=== PATIENT | male | born 1940 | race Caucasian/White ===

== ENCOUNTER 2019-05-25 16:08 | Emergency (ER) | payer OTHER ==
[2019-05-25] MEDS ORDERED: Sodium Chloride 0.9% 10 ML Syringe FLUSH PRN (16:51)
--- NOTE | 2019-05-25 17:04 | EDM.PDOC ---
ED HPI GENERAL MEDICAL PROBLEM - General Source of Information: Reports: Patient, Family History Limitations: Reports: No Limitations <Jose Manuel Ny - Last Filed: 05/25/19 17:04> <Jose D Ponce - Last Filed: 05/26/19 10:29> - General Chief Complaint: Neurological Problem Stated Complaint: [facility] Time Seen by Provider: 05/25/19 16:13 - History of Present Illness INITIAL COMMENTS - FREE TEXT/NARRATIVE: 78 year old male presents to the ED by [facility] with complaints of seizure activity. The family reports that he was just getting home from a clinic visit at the [place] and his and daughter were helping him up the stairs and into his house when he went limp and to the ground and developed seizure like activity. The patient's and daughter reported that both of the patient's legs went stiff and started shaking and his left hand flexed inward and was shaking as well. Pt's eyes remained open, but the family states that he was not responsive to verbal cues. This lasted approximately 1 minute. The patient is now drowsy and post ictal but answers questions appropriately. 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 They report that the patient has frequent "twitching" of his upper and lower extremities since the tumor removal. He has not been taking his seizure medication, Keppra, due to the side effects of muscle weakness. Pt has also been grasping at the fingers of both of his hands as if an object is there. Has also been dropping things more frequently. (Jose Manuel Ny) - Related Data Allergies Allergy/AdvReac Type Severity Reaction Status Date / Time lisinopril Allergy Hallucinati Verified 05/25/19 16:15 ons Home Meds: Home Meds Apixaban [Eliquis] 5 mg PO BID 05/25/19 [History] DULoxetine [Cymbalta] 40 mg PO BID 05/25/19 [History] Omeprazole 20 mg PO DAILY 05/25/19 [History] Ondansetron [Zofran] 8 mg PO Q8H PRN 05/25/19 [History] Tamsulosin HCl 0.4 mg PO DAILY 05/25/19 [History] Temozolomide 420 mg PO DAILY 05/25/19 [History] Valsartan 320 mg PO DAILY 05/25/19 [History] amLODIPine Besylate [Amlodipine Besylate] 5 mg PO DAILY 05/25/19 [History] levETIRAcetam [Keppra] 500 mg PO BID 05/25/19 [History] Past Medical History 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 <Jose Manuel Ny - Last Filed: 05/25/19 17:04> Social & Family History - Tobacco Use Smoking Status *Q: Former Smoker Used Tobacco, but Quit: Yes Month/Year Tobacco Last Used: 1979 - Caffeine Use Caffeine Use: Reports: Coffee - Recreational Drug Use Recreational Drug Use: No <Jose Manuel Ny - Last Filed: 05/25/19 17:04> ED ROS GENERAL - Review of Systems Review Of Systems: See Below <Jose D Ponce - Last Filed: 05/26/19 10:29> - Physical Exam Exam: See Below <Jose D Ponce - Last Filed: 05/26/19 10:29> Course <Jose Manuel Ny - Last Filed: 05/25/19 17:04> <Jose D Ponce - Last Filed: 05/26/19 10:29> - Vital Signs Last Recorded V/S: Last Vital Signs Temp 97.3 F 05/25/19 16:12 Pulse 70 05/25/19 16:12 Resp 17 05/25/19 16:12 BP 99/56 L 05/25/19 16:12 Pulse Ox 94 L 05/25/19 16:12 - Orders/Labs/Meds Orders: Active Orders 24 hr Category Date Time Status Peripheral IV Care [RC] . DIRECTED Care 05/25/19 16:52 Active Peripheral IV Insertion Adult [OM.PC] Routine Oth 05/25/19 16:51 Ordered Labs: Laboratory Tests 05/25/19 05/25/19 Range/Units 17:20 17:20 WBC 4.60 (4.23-9.07) K/mm3 RBC 4.57 L (4.63-6.08) M/mm3 Hgb 13.4 L (13.7-17.5) gm/dl Hct 39.4 L (40.1-51.0) % MCV 86.2 (79.0-92.2) fl MCH 29.3 (25.7-32.2) pg MCHC 34.0 (32.2-35.5) g/dl RDW Std Deviation 46.7 H (35.1-43.9) fL Plt Count 254 (163-337) K/mm3 MPV 8.6 L (9.4-12.3) fl Neut % (Auto) 84.5 H (34.0-67.9) % Lymph % (Auto) 6.3 L (21.8-53.1) % Jewell % (Auto) 8.3 (5.3-12.2) % Eos % (Auto) 0 L (0.8-7.0) Baso % (Auto) 0.2 (0.1-1.2) % Neut # (Auto) 3.89 (1.78-5.38) K/mm3 Lymph # (Auto) 0.29 L (1.32-3.57) K/mm3 Jewell # (Auto) 0.38 (0.30-0.82) K/mm3 Eos # (Auto) 0.00 L (0.04-0.54) K/mm3 Baso # (Auto) 0.01 (0.01-0.08) K/mm3 Manual Slide Review Abnormal smear Sodium 139 (136-145) mEq/L Potassium 4.2 (3.5-5.1) mEq/L Chloride 102 (98-107) mEq/L Carbon Dioxide 26 (21-32) mEq/L Anion Gap 15.2 H (5-15) BUN 23 H (7-18) mg/dL Creatinine 1.6 H (0.7-1.3) mg/dL Est Cr Clr Drug Dosing 39.92 mL/min Estimated GFR (MDRD) 42 (>60) mL/min BUN/Creatinine Ratio 14.4 (14-18) Glucose 150 H (83-115) mg/dL Calcium 9.7 (8.5-10.1) mg/dL Total Bilirubin 0.6 (0.2-1.0) mg/dL AST 8 L (15-37) U/L ALT 19 (16-63) U/L Alkaline Phosphatase 45 L (46-116) U/L Total Protein 7.3 (6.4-8.2) g/dl Albumin 3.8 (3.4-5.0) g/dl Globulin 3.5 gm/dL Albumin/Globulin Ratio 1.1 (1-2) Meds: Medications Discontinued Medications Generic Name Dose Route Start Last Admin Trade Name Wagner PRN Reason Stop Dose Admin Sodium Chloride 1,000 mls @ 999 mls/hr 05/25/19 17:15 05/25/19 17:29 Normal Saline IV 999 mls/hr ONETIME MICHELLE Administration Levetiracetam 1,000 mg/ Sodium 110 mls @ 400 mls/hr 05/25/19 18:48 05/25/19 18:57 Chloride IV 05/25/19 19:02 400 mls/hr ONETIME ONE Administration Lorazepam 0.5 mg 05/25/19 17:43 05/25/19 17:45 Ativan IVPUSH 05/25/19 17:44 0.5 mg ONETIME ONE Administration Ondansetron HCl 4 mg 05/25/19 17:08 05/25/19 17:29 Zofran IVPUSH 05/25/19 17:09 4 mg ONETIME ONE Administration Sodium Chloride 10 ml 05/25/19 16:51 05/25/19 17:24 Saline Flush FLUSH 10 ml ASDIRECTED PRN Administration Keep Vein Open - Re-Assessments/Exams Free Text/Narrative Re-Assessment/Exam: 05/25/19 19:48 Initial hx and exam was done by Jose Manuel Rebollar, [employer] student. I agree with her hx and exam as documented. I have also examined and interviewed patient, and daughter. CT of head does not show acute and prior MRI of about 6 weeks ago. Chemistries did show very mild dehydration but no other major acute abnormality. Have given a cautious 500 ml bolus of normal saline as initial blood pressure was low around 99 systolic. His pressures did come up. He was not able to lie still for the CT with somewhat frequent "jerking movement of his head". museum technician and nurse asked if we could "give him something. We did give a half milligram Ativan IV. After that he was quite sleepy for about an hour. He is still somewhat sleepy at this time but knows where he is at, wants to go home to his own bed. No seizure activity while in the ED. He has appointment tomorrow with his Oncologist in [place]. Discharge instr. as documented. (Jose D Ponce) Departure <Jose Manuel Ny - Last Filed: 05/25/19 17:04> - Departure Time of Disposition: 19:52 Condition: Fair <Jose D Ponce - Last Filed: 05/26/19 10:29> - Departure Disposition: Home, Self-Care 01 Clinical Impression: Seizure - Discharge Information Instructions: Seizure, Adult, [id number] Referrals: PCP,Unknown [Primary Care Provider] - Forms: ED Department Discharge Additional Instructions: Encourage fluids, continue current medications. See Dr Holguin, Oncologist tomorrow as planned. Continue to use walker. Home needs visit as planned. Return to ED as needed.
[2019-05-25] MEDS ORDERED: Ondansetron 4 MG/2 ML SDV IVPUSH ONE (17:08)
[2019-05-25] MEDS ORDERED: Sodium Chloride 0.9% 1,000 ML IV SCH (17:15)
[2019-05-25] MEDS ORDERED: LORazepam 2 MG/ML SDV IVPUSH ONE (17:43)
--- NOTE | 2019-05-25 18:17 | CT ---
Head CT Technique: Multiple axial sections through the brain were obtained. Intravenous contrast was not utilized. Comparison: Previous MRI brain of 04/19/19. Findings: Low density is identified within the right brain correlating to edema on prior MRI study. Prior craniotomy is seen within this region. No midline shift is seen. No other abnormal parenchymal densities are seen. No intracranial hemorrhage is seen. No acute paranasal sinus findings are seen on bone window settings. Visualized mastoid sinuses are also clear. Impression: 1. Low density edema within the right side of the brain which is similar to prior MRI which surrounded a previously enhancing mass. 2. When compared to prior MRI, no appreciable interval change is seen. No acute intracranial hemorrhage is seen. Diagnostic code #3 This report was dictated in [place] Standard Time
[2019-05-25] MEDS ORDERED: levETIRAcetam 1,000 MG in Sodium Chloride 0.9% 100 ML IV ONE (18:48)
== END 2019-05-25 20:21 | disposition home or self-care (01) ==
LOC: JD.ED 16:08
DX: R56.9 Unspecified convulsions (principal); Z88.8 Allergy status to other drugs, medicaments and biological substances; Z87.891 Personal history of nicotine dependence
CPT/HCPCS: 36415; 70450; 80053; 85025; 96361; 96365; 96375; 99285; J1953; J2060; J2405; J7030; J7040; 99284

== ENCOUNTER 2019-07-16 06:25 | Emergency (ER) | payer OTHER ==
[~2019-07-16 06:25] MED LIST: LORazepam 2 MG/ML SDV ONE; Midazolam 1 MG/ML 2 ML SDV ONE
--- NOTE | 2019-07-16 06:33 | EDM.PDOC ---
<Isidro Vasquez - Last Filed: 07/16/19 08:59> ED HPI GENERAL MEDICAL PROBLEM - General Chief Complaint: Neuro Symptoms/Deficits Stated Complaint: [facility] Time Seen by Provider: 07/16/19 06:28 - Related Data Allergies Allergy/AdvReac Type Severity Reaction Status Date / Time lisinopril AdvReac Hallucinati Verified 07/16/19 06:34 ons Home Meds: Home Meds DULoxetine [Cymbalta] 20 mg PO DAILY 05/25/19 [History] Omeprazole 20 mg PO DAILY 05/25/19 [History] Ondansetron [Zofran] 8 mg PO Q8H PRN 05/25/19 [History] Tamsulosin HCl 0.4 mg PO DAILY 05/25/19 [History] levETIRAcetam [Keppra] 500 mg PO BID 05/25/19 [History] Acetaminophen 1,000 mg PO ASDIRECTED 07/16/19 [History] Cholecalciferol (Vitamin D3) [Vitamin D3] 1 tab PO DAILY 07/16/19 [History] Fluconazole [Diflucan] 400 mg PO DAILY 07/16/19 [History] Insulin Glarg,Human.Rec.Analog [Lantus] 25 units SQ ACDINNER 07/16/19 [History] Insulin Lispro [Insulin Lispro Kwikpen U-100] 12 units SQ TID 07/16/19 [History] Metoprolol Tartrate 12.5 mg PO BID 07/16/19 [History] Nystatin 500,000 units PO QID 07/16/19 [History] Omeprazole 20 mg PO DAILY 07/16/19 [History] Sulfamethoxazole/Trimethoprim [Sulfamethoxazole-Tmp Ds Tablet] 160 mg PO TID [History] dexAMETHasone [Dexamethasone] 8 mg PO BID 07/16/19 [History] levETIRAcetam [Keppra] 500 mg PO DAILY 07/16/19 [History] Course - Vital Signs Last Recorded V/S: Last Vital Signs Temp 36.9 C 07/16/19 07:18 Pulse 113 H 07/16/19 06:27 Resp 32 H 07/16/19 06:27 BP 161/101 H 07/16/19 06:27 Pulse Ox 94 L 07/16/19 06:31 - Orders/Labs/Meds Labs: Laboratory Tests 07/16/19 07/16/19 07/16/19 Range/Units 06:30 06:30 06:30 WBC 4.78 (4.23-9.07) K/mm3 Corrected WBC 4.3 K/mm3 RBC 3.78 L (4.63-6.08) M/mm3 Hgb 12.1 L (13.7-17.5) gm/dl Hct 36.2 L (40.1-51.0) % MCV 95.8 H D (79.0-92.2) fl MCH 32.0 (25.7-32.2) pg MCHC 33.4 (32.2-35.5) g/dl RDW Std Deviation 59.8 H (35.1-43.9) fL Plt Count 78 L D (163-337) K/mm3 MPV 11.3 (9.4-12.3) fl Neutrophils % (Manual) 72 H (40-60) % Band Neutrophils % 0 (0-10) % Lymphocytes % (Manual) 17 L (20-40) % Atypical Lymphs % 0 % Monocytes % (Manual) 11 H (2-10) % Eosinophils % (Manual) 0 L (0.8-7.0) % Basophils % (Manual) 0 L (0.2-1.2) Nucleated RBCs 10.0 % Toxic Granulation 2+ moderate Platelet Estimate Decreased Polychromasia 3+ marked Anisocytosis 3+ marked Microcytosis 2+ moderate RBC Morph Comment Abnormal PT Print Shop Helper INR Print Shop Helper APTT 23 (22-31) SECONDS Puncture Site ABG pH (7.35-7.45) ABG pCO2 (35.0-45.0) mmHg ABG pO2 (80.0-100.0) mmHg ABG HCO3 (22.0-26.0) meq/L ABG O2 Saturation (96.0-97.0) % ABG Base Excess (-2-2.0) Sharif Test O2 Delivery Device Oxygen Flow Rate FiO2 (21.00-100.00) % Sodium 140 (136-145) mEq/L Potassium 4.3 (3.5-5.1) mEq/L Chloride 105 (98-107) mEq/L Carbon Dioxide 21 (21-32) mEq/L Anion Gap 18.3 H (5-15) BUN 69 H D (7-18) mg/dL Creatinine 1.5 H (0.7-1.3) mg/dL Est Cr Clr Drug Dosing 42.58 mL/min Estimated GFR (MDRD) 45 (>60) mL/min BUN/Creatinine Ratio 46.0 H (14-18) Glucose 734 H* (83-115) mg/dL Serum Osmolality 367 H (280-300) mosm/kg Lactic Acid Calcium 9.1 (8.5-10.1) mg/dL Magnesium 2.5 H (1.8-2.4) mg/dl Total Bilirubin 1.0 (0.2-1.0) mg/dL AST TNP ALT TNP Alkaline Phosphatase 100 (46-116) U/L Troponin I 0.133 H* (0.00-0.056) ng/mL C-Reactive Protein < 0.2 (<1.0) mg/dL NT-Pro-B Natriuret Pep (0-450) pg/mL Total Protein 5.0 L (6.4-8.2) g/dl Albumin 2.2 L (3.4-5.0) g/dl Globulin 2.8 gm/dL Albumin/Globulin Ratio 0.8 L (1-2) Urine Color (Yellow) Urine Appearance (Clear) Urine pH (5.0-8.0) Ur Specific [place] (1.005-1.030) Urine Protein (Negative) Urine Glucose (UA) (Negative) Urine Ketones (Negative) Urine Occult Blood (Negative) Urine Nitrite (Negative) Urine Bilirubin (Negative) Urine Urobilinogen (0.2-1.0) Ur Leukocyte Esterase (Negative) Urine RBC (0-5) /hpf Urine WBC (0-5) /hpf Ur Epithelial Cells (0-5) /hpf Urine Bacteria (FEW) /hpf Urine Mucus (FEW) /hpf Ketones (0.0-0.3) mM 07/16/19 07/16/19 07/16/19 Range/Units 06:30 06:30 06:30 WBC (4.23-9.07) K/mm3 Corrected WBC K/mm3 RBC (4.63-6.08) M/mm3 Hgb (13.7-17.5) gm/dl Hct (40.1-51.0) % MCV (79.0-92.2) fl MCH (25.7-32.2) pg MCHC (32.2-35.5) g/dl RDW Std Deviation (35.1-43.9) fL Plt Count (163-337) K/mm3 MPV (9.4-12.3) fl Neutrophils % (Manual) (40-60) % Band Neutrophils % (0-10) % Lymphocytes % (Manual) (20-40) % Atypical Lymphs % % Monocytes % (Manual) (2-10) % Eosinophils % (Manual) (0.8-7.0) % Basophils % (Manual) (0.2-1.2) Nucleated RBCs % Toxic Granulation Platelet Estimate Polychromasia Anisocytosis Microcytosis RBC Morph Comment PT INR APTT (22-31) SECONDS Puncture Site ABG pH (7.35-7.45) ABG pCO2 (35.0-45.0) mmHg ABG pO2 (80.0-100.0) mmHg ABG HCO3 (22.0-26.0) meq/L ABG O2 Saturation (96.0-97.0) % ABG Base Excess (-2-2.0) Sharif Test O2 Delivery Device Oxygen Flow Rate FiO2 (21.00-100.00) % Sodium (136-145) mEq/L Potassium (3.5-5.1) mEq/L Chloride (98-107) mEq/L Carbon Dioxide (21-32) mEq/L Anion Gap (5-15) BUN (7-18) mg/dL Creatinine (0.7-1.3) mg/dL Est Cr Clr Drug Dosing mL/min Estimated GFR (MDRD) (>60) mL/min BUN/Creatinine Ratio (14-18) Glucose (83-115) mg/dL Serum Osmolality (280-300) mosm/kg Lactic Acid TNP Calcium (8.5-10.1) mg/dL Magnesium (1.8-2.4) mg/dl Total Bilirubin (0.2-1.0) mg/dL AST ALT Alkaline Phosphatase (46-116) U/L Troponin I (0.00-0.056) ng/mL C-Reactive Protein (<1.0) mg/dL NT-Pro-B Natriuret Pep 1369 H (0-450) pg/mL Total Protein (6.4-8.2) g/dl Albumin (3.4-5.0) g/dl Globulin gm/dL Albumin/Globulin Ratio (1-2) Urine Color (Yellow) Urine Appearance (Clear) Urine pH (5.0-8.0) Ur Specific [place] (1.005-1.030) Urine Protein (Negative) Urine Glucose (UA) (Negative) Urine Ketones (Negative) Urine Occult Blood (Negative) Urine Nitrite (Negative) Urine Bilirubin (Negative) Urine Urobilinogen (0.2-1.0) Ur Leukocyte Esterase (Negative) Urine RBC (0-5) /hpf Urine WBC (0-5) /hpf Ur Epithelial Cells (0-5) /hpf Urine Bacteria (FEW) /hpf Urine Mucus (FEW) /hpf Ketones 1.04 (0.0-0.3) mM 07/16/19 07/16/19 07/16/19 Range/Units 06:31 06:45 08:59 WBC (4.23-9.07) K/mm3 Corrected WBC K/mm3 RBC (4.63-6.08) M/mm3 Hgb (13.7-17.5) gm/dl Hct (40.1-51.0) % MCV (79.0-92.2) fl MCH (25.7-32.2) pg MCHC (32.2-35.5) g/dl RDW Std Deviation (35.1-43.9) fL Plt Count (163-337) K/mm3 MPV (9.4-12.3) fl Neutrophils % (Manual) (40-60) % Band Neutrophils % (0-10) % Lymphocytes % (Manual) (20-40) % Atypical Lymphs % % Monocytes % (Manual) (2-10) % Eosinophils % (Manual) (0.8-7.0) % Basophils % (Manual) (0.2-1.2) Nucleated RBCs % Toxic Granulation Platelet Estimate Polychromasia Anisocytosis Microcytosis RBC Morph Comment PT INR APTT (22-31) SECONDS Puncture Site Lt radial ABG pH 7.44 (7.35-7.45) ABG pCO2 31.5 L (35.0-45.0) mmHg ABG pO2 90.0 (80.0-100.0) mmHg ABG HCO3 20.9 L (22.0-26.0) meq/L ABG O2 Saturation 94.8 L (96.0-97.0) % ABG Base Excess -2.1 L (-2-2.0) Sharif Test Positive O2 Delivery Device Nasal cannula Oxygen Flow Rate 2.0 FiO2 0.00 L (21.00-100.00) % Sodium (136-145) mEq/L Potassium (3.5-5.1) mEq/L Chloride (98-107) mEq/L Carbon Dioxide (21-32) mEq/L Anion Gap (5-15) BUN (7-18) mg/dL Creatinine (0.7-1.3) mg/dL Est Cr Clr Drug Dosing mL/min Estimated GFR (MDRD) (>60) mL/min BUN/Creatinine Ratio (14-18) Glucose 621 H* (83-115) mg/dL Serum Osmolality (280-300) mosm/kg Lactic Acid Calcium (8.5-10.1) mg/dL Magnesium (1.8-2.4) mg/dl Total Bilirubin (0.2-1.0) mg/dL AST ALT Alkaline Phosphatase (46-116) U/L Troponin I (0.00-0.056) ng/mL C-Reactive Protein (<1.0) mg/dL NT-Pro-B Natriuret Pep (0-450) pg/mL Total Protein (6.4-8.2) g/dl Albumin (3.4-5.0) g/dl Globulin gm/dL Albumin/Globulin Ratio (1-2) Urine Color Yellow (Yellow) Urine Appearance Clear (Clear) Urine pH 6.0 (5.0-8.0) Ur Specific [place] 1.025 (1.005-1.030) Urine Protein 1+ H (Negative) Urine Glucose (UA) 2+ H (Negative) Urine Ketones Negative (Negative) Urine Occult Blood 1+ H (Negative) Urine Nitrite Negative (Negative) Urine Bilirubin Negative (Negative) Urine Urobilinogen 1.0 (0.2-1.0) Ur Leukocyte Esterase Negative (Negative) Urine RBC 0-5 (0-5) /hpf Urine WBC 0-5 (0-5) /hpf Ur Epithelial Cells 0-5 (0-5) /hpf Urine Bacteria Few (FEW) /hpf Urine Mucus Moderate H (FEW) /hpf Ketones (0.0-0.3) mM Meds: Medications Discontinued Medications Generic Name Dose Route Start Last Admin Trade Name Wagner PRN Reason Stop Dose Admin Acetaminophen 650 mg 07/16/19 06:35 07/16/19 06:48 Tylenol RECTAL 07/16/19 06:36 650 mg NOW ONE Administration Acetaminophen Confirm 07/16/19 06:37 07/16/19 06:41 Tylenol Administered 07/16/19 06:38 Not Given Dose 650 mg .ROUTE .STK-MED ONE Levetiracetam 500 mg/ Sodium 105 mls @ 400 mls/hr 07/16/19 07:08 07/16/19 07: 20 Chloride IV 07/16/19 07:22 400 mls/hr ONETIME ONE Administration Ceftriaxone Sodium 2 gm/ 100 mls @ 200 mls/hr 07/16/19 08:25 07/16/19 09:10 Sodium Chloride IV 07/16/19 08:54 200 mls/hr ONETIME ONE Administration Sodium Chloride 1,000 mls @ 150 mls/hr 07/16/19 09:15 07/16/19 09:18 Normal Saline IV 150 mls/hr ASDIRECTED MICHELLE Administration Insulin Human Regular 12 unit 07/16/19 07:37 07/16/19 07:43 Humulin R SUBCUT 07/16/19 07:38 12 unit ONETIME ONE Administration Lorazepam Confirm 07/16/19 05:59 Ativan Administered 07/16/19 06:00 Dose 6 mg .ROUTE .STK-MED ONE Midazolam HCl Confirm 07/16/19 06:00 Versed 1 Mg/Ml Administered 07/16/19 06:01 Dose 4 mg .ROUTE .STK-MED ONE - Re-Assessments/Exams Free Text/Narrative Re-Assessment/Exam: 07/16/19 09:[address] Tran. The patient's CT shows low density edema within the right side of the brain which is similar to prior MRI which surrounded a previously enhancing mass. When compared to prior MRI, no appreciable interval change is seen. No acute intracranial hemorrhage is seen. His EKG shows sinus tachycardia with no acute changes. His WBC is normal. His platelets are low at 78. His pH is normal at 7.44. PCO2 was low at 31.5. His pO2 is normal at 90. His anion gap is elevated at 18.3. His creatinine is elevated at 1.5. His glucose is 734. I ordered 12 units of insulin R subcutaneous. His serum osmolality is elevated at 367. His magnesium is high at 2.5. His troponin was elevated at 0.133. His CRP is normal. His BNP is elevated at 1369. His ketones are elevated at 1.04. His UA shows no UTI. His blood was lipemic so they could not do an AST or ALT. He is on oxygen now and he still is not responding like normal. He is normally alert and will answer questions. His daughter last night asked him if he needed anything and he said money. He will normally joke like that. I have ordered some rocephin to cover him until we get the cultures back. His influenza is negative and his CXR does not show any infiltrates. I feel he needs to be admitted but I do not feel that he should be admitted here. He has some complex issues. I called [facility] and talked with the hospitalist Dr Zhao and she accepted the patient. Departure - Departure Time of Disposition: 09:15 Disposition: DC/Tfer to Acute Hospital 02 Condition: Serious Clinical Impression: Seizure, History of brain tumor, Elevated troponin Fever Qualifiers: Fever type: unspecified Qualified Code(s): R50.9 - Fever, unspecified Altered mental status Qualifiers: Altered mental status type: transient alteration of awareness Qualified Code(s) : R40.4 - Transient alteration of awareness Hyperglycemia due to type 2 diabetes mellitus Qualifiers: Diabetes mellitus [place] insulin use: with exterminator helper termite use Qualified Code(s): E11.65 - Type 2 diabetes mellitus with hyperglycemia - Discharge Information Referrals: PCP,None [Ordering Only Provider] - Forms: ED Department Discharge Sepsis Event Note - Focused Exam Date Exam was Performed: 07/16/19 Time Exam was Performed: 08:59 <Octavio Tran - Last Filed: 07/19/19 07:19> ED HPI GENERAL MEDICAL PROBLEM - General Source of Information: Reports: EMS History Limitations: Reports: Altered Mental Status, Other - History of Present Illness INITIAL COMMENTS - FREE TEXT/NARRATIVE: 78-year-old male presents to the ED per [facility] after they were summoned to a local home here in [place] by the patient's . Apparently she awoke to him having a seizure in bed. 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 He is not always compliant with his Keppra medication due to muscle weakness. Paramedics identified in am to be hypoxic and postictal on up upon arrival. Was placed on oxygen 4 L/m by nasal cannula. He had 2 large-bore IVs started one in each antecubital fossa. Diabetes were run at open. If his initial blood pressure was felt to be low. Blood sugar obtained by the paramedics was greater than 500. Patient is known to be a type II diabetic requiring insulin for management. When she's been eating as of late. Medication list suggest that he is on dexamethasone twice daily suggesting that he has a large amount of edema in his brain secondary to recurrence of brain tumor the dexamethasone may be causing a marked elevation of his blood sugar. Upon arrival the patient is unable to speak. He appears confused and dazed and this most part keeps his eyes closed. He has not noted to be moving his left upper extremity or left lower extremity at all. This is new or not. His right arm and his right leg and has good reflexes. Heart rate is irregularly irregular with multiple ectopic beats appreciated on the monitor. Initial blood pressure mildly elevated at 1: 30 to 102. On 4 L of oxygen his O2 sats are 97%. Poor entry to both lung bhatt particularly the left. Mild tympany to percussion upper abdomen suggestive of aerophagia. The abdomen is firm to palpation with no organomegaly or masses noted. He has evidence of recent fall with dark purple discoloration of his right upper eyelid. There is bruising of his right anterior lateral lower ribs which appears to be a few days old. There is also bruising of the lower extremities and left elbow. Poorly the patient is DNR/DNI patient. Artificial nutrition or hydration to be provided. IVs which apparently are normal saline will be turned down to a total of 100 mils per hour. Onset: Today Onset Date: 07/16/19 Onset Time: 05:50 Duration: Minutes: Location: Reports: Generalized ( is paralyzed on his left arm and leg. Apparently he suffered a seizure while in bed early this morning that awoke his from sleep. L1 the seizure lasted.) Severity: Severe (Her disability at present. Once of to verbal stimuli. 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 Apparently has reoccurred and he is currently on dexamethasone twice daily to help with edema in this area. If he's received any recent radiotherapy treatments. Aleve he is on palliative care.). Denies: Activity, Exercise, Lifting, Sick Contact, Trauma Associated Symptoms: Reports: Confusion (Appears be bewildered confused with a look on his face but he is not verbalizing anything.), Shortness of Breath ( Technique at rest 32/m. O2 sats 97% on 4 L.) Treatments LADIES ATTENDANT: Reports: Other (see below) (Patient is warm to palpation.) Past Medical History Cardiovascular History: Reports: Hypertension, Other (See Below) Respiratory History: Reports: COPD Neurological History: Reports: Seizure ( brain in November 2018. Surgical he has developed seizure disorder. History has recurrence of tumor with significant edema at the previous site of tumor resection.), Other (See Below) (Brain tumor resected from the right parietal) Endocrine/Metabolic History: Reports: Diabetes, Type II (Currently on insulin for diabetes management. Unclear if this was precipitated by dexamethasone were had diabetes predating the use of this medication.) 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 Social & Family History - Caffeine Use Caffeine Use: Reports: Coffee - Living Situation & Occupation Living situation: Reports: , with Spouse Occupation: Retired ED ROS GENERAL - Review of Systems Review Of Systems: Unable To Obtain Reason Not Obtained: Patient is nonverbal and unable to provide any history. ED EXAM, NEURO - Physical Exam Exam: See Below Exam Limited By: Physical Impairment (He should is not able to answer any questions or responder obey any commands.) General Appearance: Lethargic (Peers to be confused and slightly lethargic. Has trouble keeping his eyes open.), Moderate Distress, Other (Temperature was 36.4. Pulse is 113 and irregularly irregular. Respiratory was 32 with O2 sats of 97% on 4 L. Initial BP was 160 06/30/00 but came down to 1:30 to 102 within about 10 minutes of arrival.) Eye Exam: Right Eye: Other (He has a purple ecchymoses of the right upper eyelid ), Bilateral Eye: Normal Inspection (Patient has had bilateral cataract extractions and intraocular lens placements.), PERRL (No gaze palsy. Pupils are equal and responsive to light.) Throat/Mouth: Other Head Exam: Other (Residing he has a bite to the mid anterior tongue with no active bleeding. Tongue is otherwise dry and coated appears to be volume depleted. In craniotomy scar right parietal occipital scalp.) Neck: No: Lymphadenopathy (L), Lymphadenopathy (R) Respiratory/Chest: No Accessory Muscle Use, Respiratory Distress (Clinic at rest 32/m.), Decreased Breath Sounds (Rapid shallow respirations. Decreased air entry of the left lung as compared to the right.). No: Lungs Clear, Normal Breath Sounds, Rales, Rhonchi, Wheezing Cardiovascular: No Edema, No Gallop (supra ventricular as well as ventricular on the monitor.), No Rub, Diastolic Murmur, Irregularly Irregular (Frequent ectopic beats on the monitor. Both ). 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 Normal movement of the right arm and leg. But he will not obey all commands to lift above gravity.). No: Normal Mood/Affect, Normal Reflexes, Oriented x 3 ( is nonverbal and unable to assess.) DTR: 0: Bicep (L), Patella (L), Achilles (L), 1+: Bicep (R), Patella (R) Extremities: Other (Evidence of recent trauma to the right elbow and right knee from a fall with edema and bruising. No fractures clinically. Evidence of osteophytic changes both knees with very limited internal/external rotation of either hip due to arthritic change.) Psychiatric: Other Skin Exam: Warm, Dry (Nonverbal), Intact, Normal Color, No Rash EKG INTERPRETATION EKG Date: 07/16/19 Time: 06:25 Rhythm: Other (Sinus tachycardia 1 20/m) Rate (Beats/Min): 120 (Frequent PJCs and occasional he the sees.) Tererro: Normal P-Wave: Present (P-wave is inverted in lead V1.) QRS: Other (There is early R-wave transition consider right ventricular hypertrophy with septal hypertrophy pattern.) ST-T: Other (A Schlein is very regular leads 2 and 3 and they will not be used for interpretation.) QT: Prolonged (Mildly prolonged) EKG Interpretation Comments: Abnormal ECG Course - Vital Signs Last Recorded V/S: Last Vital Signs Temp 36.9 C 07/16/19 07:18 Pulse 113 H 07/16/19 06:27 Resp 32 H 07/16/19 06:27 BP 161/101 H 07/16/19 06:27 Pulse Ox 94 L 07/16/19 06:31 - Orders/Labs/Meds Labs: Laboratory Tests 07/16/19 07/16/19 07/16/19 Range/Units 06:30 06:30 06:30 WBC 4.78 (4.23-9.07) K/mm3 Corrected WBC 4.3 K/mm3 RBC 3.78 L (4.63-6.08) M/mm3 Hgb 12.1 L (13.7-17.5) gm/dl Hct 36.2 L (40.1-51.0) % MCV 95.8 H D (79.0-92.2) fl MCH 32.0 (25.7-32.2) pg MCHC 33.4 (32.2-35.5) g/dl RDW Std Deviation 59.8 H (35.1-43.9) fL Plt Count 78 L D (163-337) K/mm3 MPV 11.3 (9.4-12.3) fl Neutrophils % (Manual) 72 H (40-60) % Band Neutrophils % 0 (0-10) % Lymphocytes % (Manual) 17 L (20-40) % Atypical Lymphs % 0 % Monocytes % (Manual) 11 H (2-10) % Eosinophils % (Manual) 0 L (0.8-7.0) % Basophils % (Manual) 0 L (0.2-1.2) Nucleated RBCs 10.0 % Toxic Granulation 2+ moderate Platelet Estimate Decreased Polychromasia 3+ marked Anisocytosis 3+ marked Microcytosis 2+ moderate RBC Morph Comment Abnormal PT Print Shop Helper INR Print Shop Helper APTT 23 (22-31) SECONDS Puncture Site ABG pH (7.35-7.45) ABG pCO2 (35.0-45.0) mmHg ABG pO2 (80.0-100.0) mmHg ABG HCO3 (22.0-26.0) meq/L ABG O2 Saturation (96.0-97.0) % ABG Base Excess (-2-2.0) Sharif Test O2 Delivery Device Oxygen Flow Rate FiO2 (21.00-100.00) % Sodium 140 (136-145) mEq/L Potassium 4.3 (3.5-5.1) mEq/L Chloride 105 (98-107) mEq/L Carbon Dioxide 21 (21-32) mEq/L Anion Gap 18.3 H (5-15) BUN 69 H D (7-18) mg/dL Creatinine 1.5 H (0.7-1.3) mg/dL Est Cr Clr Drug Dosing 42.58 mL/min Estimated GFR (MDRD) 45 (>60) mL/min BUN/Creatinine Ratio 46.0 H (14-18) Glucose 734 H* (83-115) mg/dL Serum Osmolality 367 H (280-300) mosm/kg Lactic Acid Calcium 9.1 (8.5-10.1) mg/dL Magnesium 2.5 H (1.8-2.4) mg/dl Total Bilirubin 1.0 (0.2-1.0) mg/dL AST TNP ALT TNP Alkaline Phosphatase 100 (46-116) U/L Troponin I 0.133 H* (0.00-0.056) ng/mL C-Reactive Protein < 0.2 (<1.0) mg/dL NT-Pro-B Natriuret Pep (0-450) pg/mL Total Protein 5.0 L (6.4-8.2) g/dl Albumin 2.2 L (3.4-5.0) g/dl Globulin 2.8 gm/dL Albumin/Globulin Ratio 0.8 L (1-2) Urine Color (Yellow) Urine Appearance (Clear) Urine pH (5.0-8.0) Ur Specific [place] (1.005-1.030) Urine Protein (Negative) Urine Glucose (UA) (Negative) Urine Ketones (Negative) Urine Occult Blood (Negative) Urine Nitrite (Negative) Urine Bilirubin (Negative) Urine Urobilinogen (0.2-1.0) Ur Leukocyte Esterase (Negative) Urine RBC (0-5) /hpf Urine WBC (0-5) /hpf Ur Epithelial Cells (0-5) /hpf Urine Bacteria (FEW) /hpf Urine Mucus (FEW) /hpf Ketones (0.0-0.3) mM 07/16/19 07/16/19 07/16/19 Range/Units 06:30 06:30 06:30 WBC (4.23-9.07) K/mm3 Corrected WBC K/mm3 RBC (4.63-6.08) M/mm3 Hgb (13.7-17.5) gm/dl Hct (40.1-51.0) % MCV (79.0-92.2) fl MCH (25.7-32.2) pg MCHC (32.2-35.5) g/dl RDW Std Deviation (35.1-43.9) fL Plt Count (163-337) K/mm3 MPV (9.4-12.3) fl Neutrophils % (Manual) (40-60) % Band Neutrophils % (0-10) % Lymphocytes % (Manual) (20-40) % Atypical Lymphs % % Monocytes % (Manual) (2-10) % Eosinophils % (Manual) (0.8-7.0) % Basophils % (Manual) (0.2-1.2) Nucleated RBCs % Toxic Granulation Platelet Estimate Polychromasia Anisocytosis Microcytosis RBC Morph Comment PT INR APTT (22-31) SECONDS Puncture Site ABG pH (7.35-7.45) ABG pCO2 (35.0-45.0) mmHg ABG pO2 (80.0-100.0) mmHg ABG HCO3 (22.0-26.0) meq/L ABG O2 Saturation (96.0-97.0) % ABG Base Excess (-2-2.0) Sharif Test O2 Delivery Device Oxygen Flow Rate FiO2 (21.00-100.00) % Sodium (136-145) mEq/L Potassium (3.5-5.1) mEq/L Chloride (98-107) mEq/L Carbon Dioxide (21-32) mEq/L Anion Gap (5-15) BUN (7-18) mg/dL Creatinine (0.7-1.3) mg/dL Est Cr Clr Drug Dosing mL/min Estimated GFR (MDRD) (>60) mL/min BUN/Creatinine Ratio (14-18) Glucose (83-115) mg/dL Serum Osmolality (280-300) mosm/kg Lactic Acid TNP Calcium (8.5-10.1) mg/dL Magnesium (1.8-2.4) mg/dl Total Bilirubin (0.2-1.0) mg/dL AST ALT Alkaline Phosphatase (46-116) U/L Troponin I (0.00-0.056) ng/mL C-Reactive Protein (<1.0) mg/dL NT-Pro-B Natriuret Pep 1369 H (0-450) pg/mL Total Protein (6.4-8.2) g/dl Albumin (3.4-5.0) g/dl Globulin gm/dL Albumin/Globulin Ratio (1-2) Urine Color (Yellow) Urine Appearance (Clear) Urine pH (5.0-8.0) Ur Specific [place] (1.005-1.030) Urine Protein (Negative) Urine Glucose (UA) (Negative) Urine Ketones (Negative) Urine Occult Blood (Negative) Urine Nitrite (Negative) Urine Bilirubin (Negative) Urine Urobilinogen (0.2-1.0) Ur Leukocyte Esterase (Negative) Urine RBC (0-5) /hpf Urine WBC (0-5) /hpf Ur Epithelial Cells (0-5) /hpf Urine Bacteria (FEW) /hpf Urine Mucus (FEW) /hpf Ketones 1.04 (0.0-0.3) mM 07/16/19 07/16/19 07/16/19 Range/Units 06:31 06:45 08:59 WBC (4.23-9.07) K/mm3 Corrected WBC K/mm3 RBC (4.63-6.08) M/mm3 Hgb (13.7-17.5) gm/dl Hct (40.1-51.0) % MCV (79.0-92.2) fl MCH (25.7-32.2) pg MCHC (32.2-35.5) g/dl RDW Std Deviation (35.1-43.9) fL Plt Count (163-337) K/mm3 MPV (9.4-12.3) fl Neutrophils % (Manual) (40-60) % Band Neutrophils % (0-10) % Lymphocytes % (Manual) (20-40) % Atypical Lymphs % % Monocytes % (Manual) (2-10) % Eosinophils % (Manual) (0.8-7.0) % Basophils % (Manual) (0.2-1.2) Nucleated RBCs % Toxic Granulation Platelet Estimate Polychromasia Anisocytosis Microcytosis RBC Morph Comment PT INR APTT (22-31) SECONDS Puncture Site Lt radial ABG pH 7.44 (7.35-7.45) ABG pCO2 31.5 L (35.0-45.0) mmHg ABG pO2 90.0 (80.0-100.0) mmHg ABG HCO3 20.9 L (22.0-26.0) meq/L ABG O2 Saturation 94.8 L (96.0-97.0) % ABG Base Excess -2.1 L (-2-2.0) Sharif Test Positive O2 Delivery Device Nasal cannula Oxygen Flow Rate 2.0 FiO2 0.00 L (21.00-100.00) % Sodium (136-145) mEq/L Potassium (3.5-5.1) mEq/L Chloride (98-107) mEq/L Carbon Dioxide (21-32) mEq/L Anion Gap (5-15) BUN (7-18) mg/dL Creatinine (0.7-1.3) mg/dL Est Cr Clr Drug Dosing mL/min Estimated GFR (MDRD) (>60) mL/min BUN/Creatinine Ratio (14-18) Glucose 621 H* (83-115) mg/dL Serum Osmolality (280-300) mosm/kg Lactic Acid Calcium (8.5-10.1) mg/dL Magnesium (1.8-2.4) mg/dl Total Bilirubin (0.2-1.0) mg/dL AST ALT Alkaline Phosphatase (46-116) U/L Troponin I (0.00-0.056) ng/mL C-Reactive Protein (<1.0) mg/dL NT-Pro-B Natriuret Pep (0-450) pg/mL Total Protein (6.4-8.2) g/dl Albumin (3.4-5.0) g/dl Globulin gm/dL Albumin/Globulin Ratio (1-2) Urine Color Yellow (Yellow) Urine Appearance Clear (Clear) Urine pH 6.0 (5.0-8.0) Ur Specific [place] 1.025 (1.005-1.030) Urine Protein 1+ H (Negative) Urine Glucose (UA) 2+ H (Negative) Urine Ketones Negative (Negative) Urine Occult Blood 1+ H (Negative) Urine Nitrite Negative (Negative) Urine Bilirubin Negative (Negative) Urine Urobilinogen 1.0 (0.2-1.0) Ur Leukocyte Esterase Negative (Negative) Urine RBC 0-5 (0-5) /hpf Urine WBC 0-5 (0-5) /hpf Ur Epithelial Cells 0-5 (0-5) /hpf Urine Bacteria Few (FEW) /hpf Urine Mucus Moderate H (FEW) /hpf Ketones (0.0-0.3) mM Meds: Medications Discontinued Medications Generic Name Dose Route Start Last Admin Trade Name Wagner PRN Reason Stop Dose Admin Acetaminophen 650 mg 07/16/19 06:35 07/16/19 06:48 Tylenol RECTAL 07/16/19 06:36 650 mg NOW ONE Administration Acetaminophen Confirm 07/16/19 06:37 07/16/19 06:41 Tylenol Administered 07/16/19 06:38 Not Given Dose 650 mg .ROUTE .STK-MED ONE Levetiracetam 500 mg/ Sodium 105 mls @ 400 mls/hr 07/16/19 07:08 07/16/19 07: 20 Chloride IV 07/16/19 07:22 400 mls/hr ONETIME ONE Administration Ceftriaxone Sodium 2 gm/ 100 mls @ 200 mls/hr 07/16/19 08:25 07/16/19 09:10 Sodium Chloride IV 07/16/19 08:54 200 mls/hr ONETIME ONE Administration Sodium Chloride 1,000 mls @ 150 mls/hr 07/16/19 09:15 07/16/19 09:18 Normal Saline IV 150 mls/hr ASDIRECTED MICHELLE Administration Insulin Human Regular 12 unit 07/16/19 07:37 07/16/19 07:43 Humulin R SUBCUT 07/16/19 07:38 12 unit ONETIME ONE Administration Lorazepam Confirm 07/16/19 05:59 Ativan Administered 07/16/19 06:00 Dose 6 mg .ROUTE .STK-MED ONE Midazolam HCl Confirm 07/16/19 06:00 Versed 1 Mg/Ml Administered 07/16/19 06:01 Dose 4 mg .ROUTE .STK-MED ONE - Radiology Interpretation Free Text/Narrative:: 78-year-old male is brought to the ED from a local home here in [place] where he resides with his . 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 Sequelae has recurrence of disease and significant edema in this area and apparently is currently on dexamethasone twice daily. Sepsis Event Note - Focused Exam Date Exam was Performed: 07/19/19 Time Exam was Performed: 07:18
[2019-07-16] MEDS ORDERED: Acetaminophen 650 MG Supp RECTAL ONE (06:35)
[2019-07-16] MEDS ORDERED: Acetaminophen 650 MG Supp ONE (06:37)
[2019-07-16] MEDS ORDERED: levETIRAcetam 500 MG in Sodium Chloride 0.9% 100 ML IV ONE (07:08)
[2019-07-16] MEDS ORDERED: Insulin Regular, Human 100 Units/ML 3 ML Vial SUBCUT ONE (07:37)
[2019-07-16] MEDS ORDERED: cefTRIAXone 2 GM in Sodium Chloride 0.9% 100 ML IV ONE (08:25)
[2019-07-16] MEDS ORDERED: Sodium Chloride 0.9% 1,000 ML IV SCH (09:15)
--- NOTE | 2019-07-16 11:45 | CT ---
Head CT Technique: Multiple axial sections through the brain were obtained. Intravenous contrast was not utilized. Comparison: Prior MRI brain of 06/07/[address] study of 05/25/19. Findings: Previous right sided parietal craniotomy is noted. Diffuse low density is seen within the frontal, temporal and parietal white matter on the right side. Findings are felt compatible with combination of persistent edema and likely demyelination from treatment. The amount of change is fairly stable from previous MRI. No other abnormal parenchymal densities are seen. No evidence of intracranial hemorrhage. No midline shift or mass effect is seen. Bone window settings show the visualized paranasal sinuses and visualized mastoid sinuses to appear clear. No discrete acute calvarial abnormality is seen. Mild motion artifact is present. Impression: 1. Previous right-sided surgery. 2. Diminished density within the periventricular and subcortical white matter within the right brain. As mentioned above, this is felt to represent a combination of edema and demyelination. Findings are stable from previous MRI. 3. No acute intracranial abnormality is appreciated. Diagnostic code #2 Study was dictated in [place] [employer] MTDD
--- NOTE | 2019-07-16 11:47 | CR ---
Chest: Frontal view of the chest was obtained. Comparison: No prior chest imaging is available. Heart size and mediastinum are within normal limits. Lungs show no acute parenchymal change. Bony structures show scattered disc space narrowing within the spine with endplate osteophytes. Impression: 1. Nothing acute is appreciated on the frontal chest x-ray. Diagnostic code #1 Study was dictated in [place] [employer] MTDD
== END 2019-07-16 09:40 ==
LOC: JD.ED 06:25
DX: G40.909 Epilepsy, unspecified, not intractable, without status epilepticus (principal); R79.89 Other specified abnormal findings of blood chemistry; R50.9 Fever, unspecified; R41.82 Altered mental status, unspecified; E11.65 Type 2 diabetes mellitus with hyperglycemia; I10 Essential (primary) hypertension; J44.9 Chronic obstructive pulmonary disease, unspecified; E11.9 Type 2 diabetes mellitus without complications; Z85.841 Personal history of malignant neoplasm of brain; Z88.8 Allergy status to other drugs, medicaments and biological substances; Z79.899 Other long term (current) drug therapy; Z79.4 Long term (current) use of insulin
CPT/HCPCS: 36415; 36600; 51702; 70450; 71045; 80053; 80177; 81001; 82009; 82803; 82947; 83735; 83880; 83930; 84484; 85007; 85027; 85610; 85730; 86140; 87040; 87804; 93005; 94762; 96365; 96367; 99285; A9270; J0696; J1953; J7030; J7050; 93010